=== PATIENT | male | born 1950 | race Caucasian/White ===

== ENCOUNTER 2023-11-29 16:52 | Emergency (ER) | payer MEDICARE, OTHER ==
[2023-11-29 17:12] VITALS: RESP 18; O2SAT 99
--- NOTE | 2023-11-29 17:33 | ERPHSYRPT ---
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 pt has a near amputation to the left index finger. Triage Nursing Assessment: pt is aox3, pupils perrl, afebrile, resps easy and n on labored, cap refill < 3 seconds, radial pulses strong and equal, pt has a near amputation to the left index finger at the level of the first knuckle, there is a small portion on intact skin on the volar surface, all other tissue has been transected. there is tendon visible. bleeding is controlled at this time. 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 pt has a near amputation to the left index finger. pt has a near amputation to the left index finger at the level of the first knuckle, there is a small portion on intact skin on the volar surface, all other tissue has been transected. there is tendon visible. bleeding is controlled at this time. Occurred: just prior to arrival Method of Injury: incised Quality: constant Severity of Pain-Max: moderate Severity of Pain-Current: moderate Extremities Pain Location: 2nd finger: left Modifying Factors: Improves With: nothing Associated Symptoms: none Body Map: 1 - near amputated finger Allergies/Adverse Reactions: No Known Drug Allergies Allergy (Unverified 11/29/23 17:11) Home Medications: No Reportable Medications [No Reported Medications] 11/29/23 [History] Hx Tetanus, Diphtheria Vaccination/Date Given: Yes Hx Influenza Vaccination/Date Given: No Hx Pneumococcal Vaccination/Date Given: No Immunizations Up to Date: Yes Travel Risk - International Travel Have you traveled outside of the country in past 3 weeks: No - Emerging Infectious Disease Are you exhibiting symptoms associated with any current EIDs: No - Review of Systems Constitutional: No Symptoms Eyes: No Symptoms Ears, Nose, & Throat: No Symptoms Respiratory: No Symptoms Cardiac: No Symptoms Abdominal/Gastrointestinal: No Symptoms Genitourinary Symptoms: No Symptoms Musculoskeletal: Injury Skin: No Symptoms Neurological: No Symptoms Psychological: No Symptoms - Past Medical History Pertinent Past Medical History: No - Past Surgical History Past Surgical History: No - Social History Smoking Status: Never smoker Exposure to second hand smoke: No Drug Use: none - Social Determinants of Health Will the patient participate in the screening: Yes Do you worry about a steady place to live?: No Do you have any problems with any of the following?: No known problems In the past 12 months,have you had to go without utilities?: No Transportation Issues: No Has anyone in your support network made you feel unsafe?: No Have you or anyone in your house had to go without enough: No - Nursing Vital Signs Nursing Vital Signs: Initial Vital Signs Pulse Rate 99 H 11/29/23 16:56 Respiratory Rate 18 11/29/23 16:56 O2 Sat by Pulse Oximetry 99 11/29/23 16:56 Pain Scale Pain Intensity 0 - Physical Exam General Appearance: no apparent distress Eyes, Ears, Nose, Throat Exam: normal ENT inspection Neck Exam: normal inspection Cardiovascular/Respiratory Exam: chest non-tender Abdominal Exam: non-tender Back Exam: normal inspection Shoulder Exam: normal inspection Elbow/Forearm Exam: normal inspection Wrist Exam: normal inspection Hand Exam: laceration, nail injury Neuro/Tendon Exam: tendon injury visualized (left index finger) Mental Status Exam: alert, oriented x 3 Skin Exam: normal color SpO2 Interpretation: normal SpO2: 99 O2 Delivery: Room Air - Course Nursing assessment & vital signs reviewed: Yes Ordered Tests: Active Orders 24 hr Category Date Time Status FINGER(S) Stat Exams 11/29/23 17:44 Ordered HAND (2 VIEW) Stat Exams 11/29/23 17:44 Ordered - Progress Progress: unchanged Progress Note: 11/29/23 17:31 Hand Surgery service at [facility] contacted awaiting for the return phone call so that we can transfer the patient there. Discussed with : Richi (Hand surgery service at [facility] - Dr Vann) Medical Desision Making - Risk of complications The pt has a high risk of morbidity or mortality based on: Need for major surgery in patient with known risk factors - Departure Departure Disposition: Transfer ( [facility] _ Hand Surgery) Clinical Impression: Crushing injury of left index finger, initial encounter Condition: Stable Critical Care Time: Yes Critical Care Time(excluding separately billable procedures): Critical 30-74 mins Referrals: DOCTOR,NO FAMILY [Primary Care Provider] - Follow up/PCP as directed Additional Instructions: TONNY CHRISTIAN was seen on 11/29/23 n the Emergency Room. At that time you were treated for an emergent condition, during your visit Laboratory, Radiology and/or other procedures may have been ordered. It is very important that you follow-up with your Primary Care Physician NO FAMILY DOCTOR within the next 24- 48 hours to review your Emergency Room visit and the final results of testing that was ordered. Some test results such as Urine Cultures, Blood Cultures, and other cultures if ordered will not be finalized for 24-48 hours. If you do not have a Primary Care Provider please call the medical records department at [phone] ext [phone] to obtain a copy of your results or you may sign into our patient portal to obtain these results by visiting us @ [email or web address] and completing the following steps: 1. Click on the Patient Portal link 2. Click the Patient Self Enrollment Link to complete the enrollment form and entering your 3. Once the enrollment form is completed you will receive an email with a temporary ID and password at the email address you provided. 4. Next choose a user name and password. Your user name must be at least 4 characters long and your password must be at least 4 characters long. 5. Choose a security question from the list and provide your answer to the question. If you already have signed into the Health Portal you may access your Health Care Information 14/10 by the following steps: 1. Login to our website @ [email or web address] 2. Enter your original user name and password. FAQS The [facility] Health Portal is an online tool that contains your Lab Results, Radiology Reports, Visit History, Discharge Instructions and Health Summary Lab and Radiology Results will not be available for 72 hours on the portal. The Portal is a secure site, passwords are encryted and URLs are re-written so they cannot be copied and pasted. You and authorized family members are the only ones who can access your Portal. Also there is a timeout feature that protects your information if you leave the Portal page open. If you have technical difficulty please use the Contact Us link on the page this will allow you to submit any questions you have regarding the Portal or you may contact the Medical Record Department at [phone] ext [phone].
[2023-11-29 18:02] VITALS: BP 128/88; PULSE 85; TEMP 97.8
[2023-11-29] MEDS ORDERED: MORPHINE SULFATE 4 MG INJ ONE (18:12)
[2023-11-29] MEDS: MORPHINE SULFATE 4 MG INJ IM ONE (18:13)
--- NOTE | 2023-11-29 20:45 | XRAY ---
Indication: 2nd finger injury. Comparison: None Single frontal view left hand demonstrates distal 2nd finger laceration versus amputation with displaced tuft fracture and overlying bandage material. 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
--- NOTE | 2023-11-29 20:45 | XRAY ---
Indication: 2nd finger injury. Comparison: None Single frontal view left 2nd finger demonstrates laceration versus amputation distal phalanx with displaced tuft fracture and overlying bandage material. Elsewhere osteopenia.
== END 2023-11-29 18:26 | disposition short-term general hospital (02) ==
LOC: ED 16:52
DX: S67.191A Crushing injury of left index finger, initial encounter (principal); W31.89XA Contact with other specified machinery, initial encounter
CPT/HCPCS: 73120; 73140; 96372; 99284; 99291; J2270